=== PATIENT | female | born 1965 | race African-American/Black ===

== ENCOUNTER 2019-08-09 10:31 | Inpatient (IN) | payer OTHER, SELFPAY ==
[2019-08-05 14:58] LABS: BASOPHILS % 0.4 % (0.0-1.0); EOSINOPHILS # (AUTO) 0.3 (0.0-0.4); EOSINOPHILS % 3.1 % (0.0-6.0); HEMATOCRIT 39.7 % (34.2-44.1); HEMOGLOBIN 12.7 g/dL (12.0-16.0); LYMPHOCYTES # (AUTO) 3.7 (1.0-3.2); MEAN CORPUSCULAR HEMOGLOBIN 29.5 pg (28-32); MEAN CORPUSCULAR VOLUME 92.3 fL (81-99); MONOCYTES % 9.5 % (4.4-11.3); NEUTROPHILS # (AUTO) 5.2 (2.1-6.9); NEUTROPHILS % 50.4 % (38.7-80.0); PLATELET COUNT 206 x10e3/uL (140-360); RED CELL DISTRIBUTION WIDTH 14.9 % (11.7-14.4)
--- NOTE | 2019-08-05 15:15 | Diagnostic Imaging Report ---
EXAMINATION: CHEST 2 VIEWS INDICATION: Pre-operative COMPARISON: None FINDINGS: LINES/TUBES:None LUNGS:The lung volumes are low. There is perihilar fullness and indistinctness of the pulmonary vasculature. PLEURA:No pleural effusion or pneumothorax. MEDIASTINUM:The cardiomediastinal silhouette is mildly enlarged. BONES/SOFT TISSUES:No acute osseous injury. ABDOMEN:No free air under the diaphragm. IMPRESSION: Mild cardiomegaly and mild pulmonary edema. No focal pneumonia. Signed by: Jessica Cole MD on 08/05/2019 3:12 PM
[2019-08-05 15:18] LABS: ANION GAP 11.4 mmol/L (8-16); BLOOD UREA NITROGEN 13 mg/dL (7-26); BUN/CREATININE RATIO 13 (6-25); CARBON DIOXIDE 31 mmol/L (22-29); CHLORIDE 99 mmol/L (98-107); CREATININE, SERUM 1.01 mg/dL (0.57-1.11); EST GLOMERULAR FILTRATION RATE > 60 ML/MIN (60-); GLUCOSE 236 mg/dL (74-118); POTASSIUM 3.4 mmol/L (3.5-5.1); SODIUM 138 mmol/L (136-145)
[~2019-08-09] VITALS: Ht 165.1 cm; Wt 115.7 kg
[~2019-08-09 10:31] MED LIST: ACETAMINOPHEN 1000 MG/100 ML 100 ML IV ONE; ALBUTEROL0.63 MG/3 INH; BESIVANCE5 ML; CETIRIZINE HCL10 MG PO; DICLOFENAC PO; FLUTICASONE P15.8 ML; LIDOCAINE HCL (LTA) 4 ML SOLN ONE; METFORMIN HCL500 MG PO; MONTELUKAST SOD10 MG PO; PREDNISOLO15 MG/5 ML PO; PREDNISONE10 MG PO; SYMBICORT 80-10.2 GM INH; [UNRECOGNIZED DRUG - OTHER]
--- OUTSIDE RECORDS SUMMARY | 2019-08-09 10:34 | XMS REPORT ---
Author [facility] Address Unknown Phone Unavailable Care Team Providers Care Production Tech Name Role Phone Oleg ALAS Unavailable Unavailable Payers Payer Name Policy Type Policy Number Effective Date Expiration Date Problems This patient has no known problems. Allergies, Adverse Reactions, Alerts Allergy Name Allergy Type Status Severity Reaction(s) Onset Date Inactive Date Treating Clinician Comments SEAFOOD DA Active U 2019-05-08 00:00:00 mupirocin DA Active SV 2018-07-02 00:00:00 IODINE CONTRAST DA Active MO 2018-07-02 00:00:00 methylprednisolone DA Active U 2018-05-23 00:00:00 mupirocin DA Active U 2018-05-23 00:00:00 levofloxacin DA Active U 2018-05-23 00:00:00 IODINE CONTRAST DA Active U 2007-01-30 00:00:00 Medications This patient has no known medications. Results Test Description Test Time Test Comments Text Results Atomic Results Result Comments CHEST 2 VIEWS 2019-08-05 15:10:00 [place] [id number] Patient Name: ILEANA HAMILTON MR #: [id number] : 1965 Age/Sex: 54/F Req #: [id number] Adm Physician: Ordered by: SILVANA ALAS MD Report #: [id number] Location: OR Room/Bed: Procedure: [id number] DX/CHEST 2 VIEWS Exam Date: 08/05/19 Exam Time: 1450 REPORT STATUS: Signed EXAMINATION: CHEST 2 VIEWS INDICATION: Pre-operative COMPARISON: None FINDINGS: LINES/TUBES:None LUNGS:The lung volumes are low. There is perihilar fullness and indistinctness of the pulmonary vasculature. PLEURA:No pleural effusion or pneumothorax. MEDIASTINUM:The cardiomediastinal silhouette is mildly enlarged. BONES/SOFT TISSUES:No acute osseous injury. ABDOMEN:No free air under the diaphragm. IMPRESSION: Mild cardiomegaly and mild pulmonary edema. No focal pneumonia. Signed by: Bonifacio Mathews MD on 08/05/2019 3:12 PM Dictated By: BONIFACIO MATHEWS MD 11 Transcribed By: NIKA on 08/05/191511 COPY TO: SILVANA ALAS MD - XR CHEST 2 V 2019-07-24 21:11:00 Patient Name: ILEANA HAMILTON Unit No: [id number] EXAMS: CPT CODE: [id number] XR CHEST 2 V 19239 PROCEDURE: Chest radiograph, PA and lateral Location code:R16 INDICATION: Shortness of breath. COMPARISON: 05/08/2019 TECHNIQUE: PA and lateral views of the chest. FINDINGS: Low lung volumes with moderate bronchovascular crowding. There is mild bibasilar atelectasis. No focal consolidation. No pleural effusion or pneumothorax. The cardiac silhouette is within normal limits. Midline trachea. No acute osseous abnormalities. IMPRESSION: Mild left basilar atelectasis. Otherwise, no acute cardiopulmonary abnormality. at 2111 Reported and signed by: Jessica Casper MD CC: Raquel Cobos NP Technologist: Dylan Rosales (RT) (R) Transcrpt Date/Tm/Trnsp: 07/24/2019 (2110) [email or web address] Orig Print D/T: S: 07/24/2019 (2539) [facility] NAME: ILEANA HAMILTON [id number] PHYS: [place] [address] : 1965 AGE: 54 SEX: F LOC: JOSE PHONE #: [phone] EXAM DATE: 07/24/2019 STATUS: REG ER FAX #: [phone] RADIOLOGY NO: [id number] PAGE 1 Signed Report COMPREHENSIVE METABOLIC PANEL 2019-05-08 22:05:00 SODIUM (test code=NA) 141 MMOL/L 137-145 POTASSIUM (test code=K) 3.8 MMOL/L 3.5-5.1 CHLORIDE (test code=CL) 100 MMOL/L 98-107 CARBON DIOXIDE (test code=CO2) 32 MMOL/L 22-30 ANION GAP (test code=GAP) 13 MMOL/L 14-24 GLUCOSE (test code=GLU) 182 MG/DL 74-106 BLOOD UREA NITROGEN (test code=BUN) 13 MG/DL 7-17 GLOMERULAR FILTRATION RATE (test code=GFR) > 60 Reporting units: ml/min/1.73 m2 (Modified MDRD Formula)Reference Range: > or=60 ml/min/1.73 m2 CREATININE (test code=CREAT) 0.70 MG/DL 0.52-1.04 TOTAL PROTEIN (test code=PROT) 7.1 G/DL 6.3-8.2 ALBUMIN (test code=ALB) 3.9 G/DL 3.5-5.0 CALCIUM (test code=CA) 9.8 MG/DL 8.4-10.2 BILIRUBIN TOTAL (test code=BILT) 0.3 MG/DL 0.2-1.3 SGOT/AST (test code=AST) 36 UNITS/L 14-36 SGPT/ALT (test code=ALT) 46 UNITS/L 9-52 ALKALINE PHOSPHATASE (test code=ALKP) 78 UNITS/L 38-126 [id number] 22:05:00* Test Item Value Reference Range Comments TROPONIN-I (test code=TROPI) < 0.012 NG/ML 0.012-0.033 COMPREHENSIVE METABOLIC [id number] 22:04:00* Test Item Value Reference Range Comments SODIUM (test code=NA) 141 MMOL/L 137-145 POTASSIUM (test code=K) 3.8 MMOL/L 3.5-5.1 CHLORIDE (test code=CL) 100 MMOL/L 98-107 CARBON DIOXIDE (test code=CO2) 32 MMOL/L 22-30 ANION GAP (test code=GAP) 13 MMOL/L 14-24 GLUCOSE (test code=GLU) 182 MG/DL 74-106 BLOOD UREA NITROGEN (test code=BUN) 13 MG/DL 7-17 GLOMERULAR FILTRATION RATE (test code=GFR) > 60 Reporting units: ml/min/1.73 m2 (Modified MDRD Formula)Reference Range: > or=60 ml/min/1.73 m2 CREATININE (test code=CREAT) 0.70 MG/DL 0.52-1.04 TOTAL PROTEIN (test code=PROT) 7.1 G/DL 6.3-8.2 ALBUMIN (test code=ALB) 3.9 G/DL 3.5-5.0 CALCIUM (test code=CA) 9.8 MG/DL 8.4-10.2 BILIRUBIN TOTAL (test code=BILT) 0.3 MG/DL 0.2-1.3 SGOT/AST (test code=AST) 36 UNITS/L 14-36 SGPT/ALT (test code=ALT) 46 UNITS/L 9-52 ALKALINE PHOSPHATASE (test code=ALKP) 78 UNITS/L 38-126 [id number] 22:04:00* Test Item Value Reference Range Comments TROPONIN-I (test code=TROPI) NG/ML 0.0-0.045 PROTHROMBIN [id number] 21:54:00* Test Item Value Reference Range Comments PROTHROMBIN TIME PATIENT (test code=PTP) 10.2 SECONDS 9.6-11.6 INTERNATIONAL NORMAL RATIO (test code=INR) 1.0 0.8-1.1 The INR is to be used only for monitoring oral anticoagulanttherapy. INDICATION INR VALUE 1. Prophylaxis, deep venous thrombosis, including high risk surgery. 2.0 - 3.0 2. Prophylaxis, deep venous thrombosis, hip surgery, treatment for deep venous thrombosis or pulmonary prevention of systemic embolism in patients with valvular heart disease, atrial fibrillation, tissue heart valve, or acute myocardial infarction. 2.0 - 3.0 3. M echanical prosthesis heart valves, recurrent systemic embolism. 3.0 - 4.5 [id number] 21:54:00* Test Item Value Reference Range Comments D-DIMER (test code=DDIMER) 0.32 MG/L FEU 0-0.49 Negative Predictive Value cutoff for DVT & PE: <0.50 mg/L FEUInterpretation: A value of <0.50 mg/L FEU has a NegativePredictive Value in ruling out a DVT or PE diagnosis.A value of 0.50 mg/L or greater is considered Positive.Positive result cannot be used for the diagnosis of DVT andPE without using of standard radiological procedures. CBC W/AUTO [id number] 21:38:00* Test Item Value Reference Range Comments WHITE BLOOD CELL (test code=WBC) 6.8 K/MM3 3.8-9.8 RED BLOOD CELL (test code=RBC) 4.28 M/MM3 3.58-4.97 HEMOGLOBIN (test code=HGB) 12.5 G/DL 11.2-14.9 HEMATOCRIT (test code=HCT) 40.3 % 33.2-43.5 MEAN CELL VOLUME (test code=MCV) 94 fL 80.7-99.1 MEAN CELL HGB (test code=MCH) 29.2 pg 27.0-34.1 MEAN CELL HGB CONCETRATION (test code=MCHC) 31.0 % 32.2-35.7 RED CELL DISTRIBUTION WIDTH (test code=RDW) 14.6 % 12.1-15.2 PLATELET COUNT (test code=PLT) 180 K/MM3 129-368 MEAN PLATELET VOLUME (test code=MPV) 9.7 fl 7.4-10.4 NEUTROPHIL % (test code=NT%) 48.4 % 43-75 IMMATURE GRANULOCYTE % (test code=IG%) 0.3 % 0.0-2.0 LYMPHOCYTE % (test code=LY%) 36.3 % 14-44 MONOCYTE % (test code=MO%) 12.0 % 4-13 EOSINOPHIL % (test code=EO%) 2.6 % 0-6 BASOPHIL % (test code=BA%) 0.4 % 0-2 NUCLEATED RBC % (test code=NRBC%) 0.0 % 0-1.0 NEUTROPHIL # (test code=NT#) 3.31 K/mm3 2.0-7.6 IMMATURE GRANULOCYTE # (test code=IG#) 0.02 x10 3/uL 0-0.03 LYMPHOCYTE # (test code=LY#) 2.48 K/mm3 1.0-3.8 MONOCYTE # (test code=MO#) 0.82 K/mm3 0.1-0.8 EOSINOPHIL # (test code=EO#) 0.18 K/mm3 0.0-0.2 BASOPHIL # (test code=BA#) 0.03 K/mm3 0.0-0.2 NUCLEATED RBC # (test code=NRBC#) 0.00 K/mm3 0.0-0.1 - XR CHEST [id number] 21:19:00 Patient Name: ILEANA HAMILTON Unit No: [id number] EXAMS: CPT CODE: [id number] XR CHEST 1V 25845 AFTER HOURS SERVICE ON: 05/08/2019 9:18 PM AP Portable Chest Location Code M12 HISTORY: shoulder pain FINDINGS: Study is limited due to shallow inspiration. The Pedro lung bases. There is no pneumothorax. Cardiac silhouette and mediastinum appear within normal limits. IMPRESSION: No active pulmonary findings. at 2119 Reported and signed by: Kishan Stapleton M.D. CC: PANDA FR[place]; Devendra Hoff MD Technologist: Edgar Braswell, (RT) (R) Transcrpt Date/Tm/Trnsp: 05/08/2019 (2118) [email or web address] Orig Print D/T: S: 05/08/2019 (2121) [facility] NAME: ILEANA HAMILTON [id number] PHYS: PANDA [place] [address] : 1965 AGE: 54 SEX: F LOC: JOSE PHONE #: [phone] EXAM DATE: 05/08/2019 STATUS: REG ER FAX #: [phone] RADIOLOGY NO: [id number] PAGE 1 Signed Report
--- OUTSIDE RECORDS SUMMARY | 2019-08-09 10:34 | XMS REPORT ---
Author Author Justyna Elizalde Organization [employer] Address Unknown Phone Unavailable Care Team Providers Care Rn Documentation Specialist Name Role Phone Justyna Elizalde CP Unavailable Allergies, Adverse Reactions, Alerts Substance Reaction Event Type Mupirocin Info Not Available Drug Allergy MethylPREDNISolone rash Drug Allergy Levofloxacin Info Not Available Drug Allergy Problems Problem Type Condition Code Onset Dates Condition Status Assessment Persistent asthma without complication, unspecified asthma severity J45.909 Active Problem Persistent asthma without complication, unspecified asthma severity J45.909 Active Medications Medication Code System Code Instructions Start Date End Date Status Dosage Albuterol Sulfate [facility] 84855605024 (2.5 MG/3ML) 0.083% Inhalation Three times a day Active 3 ml as needed albuterol NDC 0 Active not defined Tramadol HCl NDC 0 Active not defined PrednisoLONE [facility] [address]-64 Active not defined Famotidine [facility] [address]-57 Active not defined Budesonide-Formoterol Fumarate [facility] [address]-18 Active not defined Oxybutynin Chloride [facility] [address]-68 10 MG Orally Active not defined Anoro Ellipta [facility] 25571608602 62.5-25 MCG/INH Inhalation Once a day Aug 18, 2018 Sep 17, 2018 Active 1 puff Prednisone NDC 0 Active not defined Acetaminophen [facility] [address]-64 650 MG Orally every 6 hrs Active 1 tablet as needed Montelukast Sodium [facility] [address]-97 Active not defined Results No Known Results Summary Purpose [employer] Submission
--- OUTSIDE RECORDS SUMMARY | 2019-08-09 10:34 | XMS REPORT ---
Author Author Dawn Martinez [facility] [employer] Address Unknown Phone Unavailable Care Team Providers Care Gas Furnace Installer Name Role Phone Dawn Martinez Unavailable Allergies No Known Allergies Problems Problem Type Condition Code Onset Dates Condition Status Problem Persistent asthma without complication, unspecified asthma severity J45.909 Active Medications No Known Medications Results No Known Results Summary Purpose [employer] Submission
--- OUTSIDE RECORDS SUMMARY | 2019-08-09 10:34 | XMS REPORT | Summary of Care ---
Author RAUL Desai M.D. Organization Unknown Address [facility] Phone Unavailable Care Team Providers Care Head Wrestling Coach Name Role Phone RAUL RUELAS M.D. Unavailable Unavailable OSMAN SCHMIDT M.D. Unavailable Unavailable Raul Ruelas MD Unavailable Unavailable WEI MOLINA DCKIMBERLY Unavailable Unavailable Unavailable Unavailable Functional Status Name Dates Details Functional status health issues are not documented Status: Name Dates Details Cognitive status health issues are not documented Status: Problems Name Dates Details Left leg swelling (729.81, M79.89) Status: Active Left knee pain (719.46, M25.562) Status: Active Primary localized osteoarthritis of knees, bilateral (715.16, M17.0) Status: Active Right knee pain (719.46, M25.561) Status: Active Arthralgia of both knees (719.46, M25.561) Status: Active History of total left knee replacement (V43.65, Z96.652) Status: Active Medications Name Dates Details COMPOUND MEDICATION COMPOUND: Flurbiprofen 10%-Amantadine 10%-Cyclobenzaprine 2%-Baclofen 2%- Gabapentin 6%-Lidocaine 2% Apply 1-2gm to affected area(s) 3-4x QD; Quantity: 240 OSMAN SCHMIDT M.D. * Start : 18-Sep-2016 Active COMPOUND MEDICATION [place]-3 1gm/D3 1,000 IU Kit Wellness Sig: Take 2 capsules of omega-3 by mouth tw ice a day. Take 2 capsules of vitamin D3 by mouth once a day * Quantity: 60 Refills: 5 OSMAN SCHMIDT M.D. * Start : 18-Sep-2016 Active Mefenamic Acid 250 MG Oral Capsule TAKE 2 CAPSULES NOW, THEN 1 CAPSULE EVERY 6 HOURS NEEDED. * Quantity: 30 Refills: 0 OSMAN SCHMIDT M.D. * Start : 18-Sep-2016 Active Omeprazole-Sodium Bicarbonate 40-1100 MG Oral Capsule Take 1 Capsule daily PRN as directed without food; Qty 30x Capsule * Quantity: 30 Refills: 0 OSMAN SCHMIDT M.D. * Start : 18-Sep-2016 Active Ibuprofen 200 MG Oral Tablet * Refills: 0 Active Cinnamon CAPS * Refills: 0 Active Fish Oil CAPS * Refills: 0 Active Glucosamine Chondroitin MSM TABS * Refills: 0 Active TraMADol HCl - 50 MG Oral Tablet TAKE 1 TABLET EVERY 4 TO 6 HOURS NEEDED FOR PAIN. * Quantity: 30 Refills: 0 OSMAN SCHMIDT M.D. * Start : 14-Apr-2017 Active TraMADol HCl - 50 MG Oral Tablet TAKE 1 TABLET EVERY 4 TO 6 HOURS NEEDED FOR PAIN. * Quantity: 60 Refills: 0 OSMAN SCHMIDT M.D. * Start : 04-Jun-2017 Active Ondansetron HCl - 4 MG Oral Tablet take 1 every 6 hrs/prn with pain medication * Quantity: 60 Refills: 0 RAUL RUELAS M.D. Start : 10-Oct-2017 Active Allergies and Adverse Reactions Name Dates Details iodine (Allergy) Status: Active Seafood (Allergy) Status: Active Past Medical History Name Dates Details History of asthma (V12.69, Z87.09) Status: Resolved Procedures Procedure Dates Details Procedures not documented Immunization Name Dates Details Immunizations not documented Family History Name Dates Details Family history of cerebrovascular accident (CVA) (V17.1, Z82.3) Status: Active Name Dates Details Family history of malignant neoplasm (V16.9, Z80.9) Status: Active Social History Name Dates Details Unknown if ever smoked Vital Signs Date Test Result Details No Known Vitals to report Results Date Description Value Details [id number] [U] XRAY KNEE 3 VWS LEFT 23837 XR KNEE 3 VWS LEFT Images acquired, not reported on this accession number. [id number] US Extremity lower venous Doppler Unilat 01822 Extremity lower venous Doppler Unilat US SEE NOTES Comments: Patient Name: ILEANA Benitez NNODIDOB: 1965; Age: 53 years y/o FemaleMR: [id number]: Ext Lower Venous Doppler Unilat US 05/14/2018 11:12 AM CDTOrdering Physician: Raul Ruelas, MDComparison: NoneClinical Indication: Pain in left lower leg - .; Color and Doppler venous flow, respiratory phasicity, compression andaugmentation is noted at the deep venous structures of the left lowerextremity.IMPRESSION: No deep venous thrombosis noted at the left lower extremitySL: [id number]--Bqux by: Jon Workmanictated Date/time: 05/14/18 11:37Electronically Signed by: Jon Workman MD 05/14/1811:37FINAL REPORT Plan of Care Name Dates Details Planned Observations Planned Goals not documented Planned Encounters Appointment; RAUL RUELAS M.D. On: 07-Aug-2018 13:15 Interventions Provided Medication Changes* Ondansetron HCl - 4 MG Oral Tablet - Start Labs/Procedures/Imaging* [U] XR KNEE 3 VWS BILATERAL; Done: 13 Aug 2017 * [U] XRAY KNEE 3 VWS LEFT 53375; Done: 21 Nov 2017 * [U] XRAY KNEE 3 VWS LEFT 89699; Done: 02 Jan 2018 * [U] XRAY KNEE 3 VWS LEFT 02633; Done: 07 Nov 2017 * [U] XRAY KNEE 3 VWS LEFT 58343; Done: 06 Feb 2018 * [U] XRAY KNEE 3 VWS LEFT 06930; Done: 13 May 2018 Instructions Name Dates Details Instructions not documented Encounters Appointment; OSMAN SCHMIDT M.D. Encounter Diagnosis: Problem not documented On: 18-Sep-2016 10:00 Appointment; OSMAN SCHMIDT M.D. Encounter Diagnosis: Problem not documented On: 30-Oct-2016 10:00 Appointment; OSMAN SCHMIDT M.D. Encounter Diagnosis: Problem not documented On: 10-Apr-2017 13:30 Appointment; OSMAN SCHMIDT M.D. Encounter Diagnosis: Problem not documented On: 14-Apr-2017 10:30 Appointment; OSMAN SCHMIDT M.D. Encounter Diagnosis: Problem not documented On: 14-May-2017 10:00 Appointment; OSMAN SCHMIDT M.D. Encounter Diagnosis: Problem not documented On: 25-Jun-2017 9:45 Appointment; LI-TERRELL PIERRE, OSMAN, M.D. Encounter Diagnosis: Problem not documented On: 02-Jul-2017 10:00 Appointment; OSMAN SCHMIDT M.D. Encounter Diagnosis: Problem not documented On: 09-Jul-2017 10:00 Appointment; KIMBERLY CARVAJAL P.A. Encounter Diagnosis: Problem not documented On: 24-Jul-2017 9:30 Appointment; RAUL RUELAS M.D. Encounter Diagnosis: Problem not documented On: 13-Aug-2017 16:00
[2019-08-09] MEDS ORDERED: SUGAMMADEX SODIUM 200 MG/2 ML VIAL IV ONE (11:22)
[2019-08-09] MEDS ORDERED: SCOPOLAMINE 1.5 MG PATCH ONE (11:22)
[2019-08-09] MEDS ORDERED: INSULIN REGULAR, HUMAN 100 UNIT/1 ML 3ML VIAL ONE ×2 (11:43→17:18)
[2019-08-09] MEDS ORDERED: CEFAZOLIN SOD 1 GM/NS 50ML 100 ML IV ONE (11:49)
[2019-08-09] MEDS: SODIUM CHLORIDE 0.9% 1000ML 1,000 ML IV SCH ×2 (11:55→22:58)
[2019-08-09] MEDS ORDERED: SCOPOLAMINE 1.5 MG PATCH TOP SCH (12:00)
[2019-08-09] MEDS ORDERED: MORPHINE SULFATE 2 MG/ML SYR 1ML IV PRN (12:00)
[2019-08-09] MEDS ORDERED: BUPIVACAINE 0.25% 30ML SDV INJ ONE (12:24)
[2019-08-09] MEDS ORDERED: HYDROMORPHONE 2MG/ML 2 MG/ML ML ONE (15:17)
[2019-08-09] MEDS ORDERED: HYDRALAZINE HCL 20 MG/ML VIAL ONE (15:20)
[2019-08-09] MEDS ORDERED: ROCURONIUM BROMIDE 10 MG/ML 5ML VIAL ONE (16:39)
[2019-08-09] MEDS ORDERED: GLYCOPYRROLATE INJ 1MG/ 5 ML SYR ONE (16:39)
[2019-08-09] MEDS ORDERED: LIDOCAINE HCL 2% LOCAL INJ 5 ML SDV VIAL INJ ONE (16:39)
[2019-08-09] MEDS ORDERED: NEOSTIGMINE 5 MG/5ML SYR ONE (16:39)
[2019-08-09] MEDS ORDERED: SEVOFLURANE INHAL SOLN 250 ML PEN BTL ONE (16:39)
[2019-08-09] MEDS ORDERED: ONDANSETRON HCL INJ 2MG/ML 2ML 2 MG/ML VIAL ONE (16:39)
[2019-08-09] MEDS ORDERED: EPHEDRINE SULFATE INJ 50 MG/10 ML SYR ONE (16:39)
[2019-08-09] MEDS ORDERED: PROPOFOL IV EMULSION 10 MG/ML 20 ML VIAL ONE (16:39)
[2019-08-09] MEDS ORDERED: DEXAMETHASONE SOD PHOS INJ 4 MG/ML VIAL ONE (16:39)
--- NOTE | 2019-08-09 16:54 | Operative Report ---
DATE OF PROCEDURE: 08/09/2019 SURGEON: Fernando Karimi MD PREOPERATIVE DIAGNOSIS: Morbid obesity, BMI 41. POSTOPERATIVE DIAGNOSIS: Morbid obesity, BMI 41. PREOPERATIVE INDICATION: Treat disease, prevent complications related to comorbid conditions of obesity. PROCEDURES: Laparoscopic vertical sleeve gastrectomy. ANESTHESIA: General. WIRE PHOTO OPERATOR NEWS: Christophe Barone, surgical nurse practitioner (needed due to complexity of case). FLUIDS: 700 mL of crystalloid. ESTIMATED BLOOD LOSS: 20 mL. DRAINS: None. COMPLICATIONS: None. SPECIMENS: Partial stomach. GRAFTS: None. FINDINGS: 1. Normal upper GI anatomy. 2. Negative intraoperative EGD leak test. PROCEDURE IN DETAIL: The patient was brought to the operating room, was intubated under general endotracheal anesthesia. She was positioned in supine with both arms abducted and all pressure points were appropriately padded. She was sterilely prepped and draped in the usual fashion. A preprocedure pause was performed identifying the patient, use of perioperative antibiotics, intended procedure, and staff surgeon. Access was gained via a 5 mm left subcostal incision using a Veress needle. Abdomen was insufflated. Four additional trocars were placed in standard position. Liver retractor was used to expose the stomach. The greater curvature of stomach was mobilized using the [place] LigaSure device from about 3 cm proximal to the pyloric valve to the left isai of the diaphragm. Once this was completed, an adult-sized endoscope was inserted through the oropharynx and guided to the lesser curvature of the stomach. The greater curvature of stomach was resected with multiple firings of an Endo-BOBBY 60 mm purple load with SeamGuard reinforced stapling device. Once this was complete, we submerged the sleeve under saline and conducted intraoperative EGD leak test, no leaks were identified. The specimen was removed through the right periumbilical port site. The port site was closed with 0 Vicryl suture using a Augustin Talavera technique in a kgjchn-df-pqupt fashion. We then verified hemostasis and removed the liver retractor and desufflated the abdomen. Trocars were removed. Incision sites were closed with 4-0 Monocryl suture in a subcuticular fashion. Dermabond dressings were applied. A 0.25% bupivacaine was used both at the preperitoneal incision sites. The patient tolerated the procedure well. Type of wound was type 2, clean, contaminated. All surgical sponge and instrument counts were correct. MD ASHLIE Rebolledo/JESSICA /[id number]
[2019-08-09] MEDS ORDERED: SODIUM CHLORIDE 0.9% 1000ML 1,000 ML ONE (16:56)
[2019-08-09] MEDS ORDERED: FENTANYL CITRATE/PF 100MCG/2 ML INJ ONE (18:02)
[2019-08-09] MEDS ORDERED: MIDAZOLAM HCL 2 MG/2 ML VIAL ONE (18:02)
[2019-08-09] MEDS ORDERED: KETAMINE HCL INJ 50 MG/ML 10 ML VIAL ONE (18:02)
--- NOTE | 2019-08-09 19:25 | History and Physical ---
CHIEF COMPLAINT: Underwent weight loss surgery today. HISTORY OF PRESENT ILLNESS: This is a 54-year-old Afghan woman, who was admitted to [facility] with a diagnosis of extreme obesity, BMI of 42, that was complicating her underlying hypertension and asthma. The patient underwent successful laparoscopic vertical sleeve gastrectomy today that was performed by Dr. Fernando Karimi. The patient tolerated the surgery quite well. The patient voices no complaints at this time. She is currently in the postanesthesia care unit. The patient had a chest x-ray performed on August 05, 2019 that revealed mild cardiomegaly with mild pulmonary edema. REVIEW OF SYSTEMS: GENERAL: Weight has been stable. No fever or chills. HEENT: No headaches. No visual changes. CARDIOVASCULAR/RESPIRATORY: She denies any chest pain, shortness of breath, or cough. GI: No nausea, vomiting, diarrhea, or constipation. The patient states she has not had any belching or flatus today since the surgery. : Dave catheter has been removed. NEUROMUSCULAR: No limb weakness or numbness. PAST MEDICAL HISTORY: 1. Extreme obesity, BMI of 42. 2. Asthma. 3. Allergic rhinitis. 4. Type 2 diabetes mellitus. 5. Arthritis. 6. Hypertension, likely. ALLERGIES: 1. IODINE. 2. LEVOFLOXACIN. 3. METHYLPREDNISONE. 4. SHELLFISH. MEDICATIONS: 1. Albuterol nebulized treatments 4 times a day as needed for severe shortness of breath and wheezing. 2. Besifloxacin one drop each eye as needed. 3. Symbicort inhaler 80/4.5, one puff daily. 4. Zyrtec 10 mg daily. 5. Flonase 1 spray each nostril daily. 6. Metformin 500 mg daily. 7. Montelukast 10 mg daily. 8. Prednisolone 15 mg 4 times a day as needed. 9. Prednisone 10 mg daily as needed. 10. Diclofenac 75 mg by mouth as needed for arthritic pain. FAMILY HISTORY: Father of a stroke. The patient does not know of any family members that have hypertension. PAST SURGICAL HISTORY: 1. Laparoscopic vertical sleeve gastrectomy today. 2. Left total knee replacement. 3. Abdominal hernia repair. 4. Right ear surgery. SOCIAL HISTORY: This woman is originally from the country of [place]. She is employed as a private duty nurse. She lives in her house with her sisters. No history of tobacco or alcohol use. PHYSICAL EXAMINATION: GENERAL: She is awake, alert, slightly somnolent, but arousable. She can answer questions appropriately though. VITAL SIGNS: Blood pressure 144/96, blood pressure earlier today after surgery was 170/106, pulse is 90, respiratory rate is 22, oxygen saturations 100% on 2 L of oxygen, temperature is 98.8. Height 5 feet 2 inches, weight is 255 pounds, BMI 42. INTEGUMENT: Skin is warm and dry. No pallor, jaundice, or diaphoresis. HEENT: Anicteric sclerae. Moist mucous membranes. NECK: Supple. No evidence of jugular venous distention. CARDIOVASCULAR: Distant heart sounds. Regular rate and rhythm. LUNGS: No rales, no rhonchi, no wheezes. ABDOMEN: Obese. No bowel sounds auscultated. The laparoscopic incision sites are clean, dry, and intact. EXTREMITIES: No edema or deformities. The patient is currently wearing sequential compression devices. NEUROLOGIC: Intact. DIAGNOSES: 1. Extreme obesity, BMI of 42, complicating underlying hypertension. 2. Hypertensive heart disease. 3. Asthma. 4. Diastolic heart failure, likely. PLAN: 1. We will decrease intravenous fluids from 125 to 75 mL an hour since the patient likely has diastolic heart failure. 2. Order a B-type natriuretic peptide level to assess for intravascular volume overload. 3. Continue supplemental oxygen. 4. Order nebulized bronchodilators. 5. Encourage incentive spirometer usage to prevent atelectasis. 6. Resume home medications, but we will hold the nonsteroidal anti-inflammatory drugs. 7. Mobilize the patient. 8. We will order enoxaparin to prevent deep venous thrombosis prophylaxis. I would like to thank Dr. Karimi for involving me in this case. I spent 45 minutes in the care of this patient. MD JOSE Hinojosa/JESSICA /[id number] MTDD
[2019-08-09] MEDS ORDERED: HYDROCODONE/APAP 7.5MG-325MG 1 EA TAB ONE (20:03)
[2019-08-09 21:00] VITALS: BP 136/76
[2019-08-09] MEDS ORDERED: BISACODYL 5 MG TAB EC PO PRN (22:45)
[2019-08-09] MEDS: AMLODIPINE BESYLATE 5 MG TAB PO SCH (22:58)
[2019-08-09] MEDS: ENOXAPARIN SOD INJ 40 MG/0.4 ML SYR SC SCH (22:58)
[2019-08-09] MEDS ORDERED: MAGNESIUM HYDROXIDE 30 ML UDC PO ONE (23:00)
[2019-08-10] VITALS (7 sets, daily range): BP systolic 122–175; BP diastolic 76–112
[2019-08-10] MEDS: ONDANSETRON HCL INJ 2MG/ML 2ML 2 MG/ML VIAL IV PRN ×2 (00:16→10:34)
[2019-08-10] MEDS: HYDROCODONE/APAP 7.5MG-325MG 1 EA TAB PO PRN ×3 (04:27→15:51)
[2019-08-10 05:57] LABS: BASOPHILS % 0.3 % (0.0-1.0); EOSINOPHILS % 0.3 % (0.0-6.0); HEMATOCRIT 39.1 % (34.2-44.1); HEMOGLOBIN 12.4 g/dL (12.0-16.0); LYMPHOCYTES # (AUTO) 2.1 (1.0-3.2); LYMPHOCYTES % 19.7 % (18.0-39.1); MEAN CORPUSCULAR HEMOGLOBIN 28.9 pg (28-32); MEAN CORPUSCULAR HGB CONC 31.7 g/dL (31-35); MEAN CORPUSCULAR VOLUME 91.1 fL (81-99); MONOCYTES # (AUTO) 0.9 (0.2-0.8); MONOCYTES % 7.8 % (4.4-11.3); NEUTROPHILS # (AUTO) 7.8 (2.1-6.9); NEUTROPHILS % 71.5 % (38.7-80.0); PLATELET COUNT 190 x10e3/uL (140-360); RED BLOOD COUNT 4.29 x10e6/uL (3.6-5.1); RED CELL DISTRIBUTION WIDTH 15.1 % (11.7-14.4)
[2019-08-10 06:10] LABS: ALANINE AMINOTRANSFERASE 210 IU/L (0-55); ALBUMIN 3.4 g/dL (3.5-5.0); ALKALINE PHOSPHATASE 68 IU/L (40-150); BLOOD UREA NITROGEN 8 mg/dL (7-26); BUN/CREATININE RATIO 9 (6-25); CALCIUM 9.5 mg/dL (8.4-10.2); CARBON DIOXIDE 28 mmol/L (22-29); CHLORIDE 100 mmol/L (98-107); EST GLOMERULAR FILTRATION RATE > 60 ML/MIN (60-); GLUCOSE 173 mg/dL (74-118); MAGNESIUM 2.2 MG/DL (1.3-2.1); PHOSPHORUS 3.8 MG/DL (2.3-4.7); SODIUM 139 mmol/L (136-145)
--- NOTE | 2019-08-10 07:29 | NUR ---
PROGRESS NOTE S: No complaints O: AF, VSS General- no distress Abdomen- soft, incisions healing well A/P: POD 1, s/p Lap sleeve gastrectomy -Clears, ambulate, IS, OOB to chair -Instructions for diet and follow up given to patient -OK to dc home today from surgery perspective
[2019-08-10] MEDS: AMLODIPINE BESYLATE 5 MG TAB PO SCH (10:24)
[2019-08-10] MEDS: ENOXAPARIN SOD INJ 40 MG/0.4 ML SYR SC SCH ×2 (10:28→17:00)
--- NOTE | 2019-08-10 11:19 | Discharge Summary ---
ADMIT DIAGNOSES: 1. Extreme obesity, BMI of 42, complicating underlying hypertension. 2. Hypertensive heart disease. 3. Asthma. 4. Diastolic heart failure, likely. DISCHARGE DIAGNOSES: 1. Status post laparoscopic vertical sleeve gastrectomy. 2. Extreme obesity, BMI of 42, complicating underlying hypertension. 3. Asthma. 4. Diastolic heart failure, likely. HOSPITAL COURSE: This is a 54-year-old English woman, who was initially admitted to [facility] with diagnosis of extreme obesity, BMI of 42 with complicating underlying hypertension. She also has a history of prediabetes, asthma. She was also diagnosed with likely diastolic heart failure during this hospital stay. The patient had a chest x-ray done here at [facility] on August 05, 2019, which revealed mild cardiomegaly with mild pulmonary edema. During this hospitalization, she was found to have elevated blood pressure readings, thus she was started on amlodipine 5 mg daily. The patient however stated that 1 week prior to the surgery, she was started on oral prednisone by [facility] because of asthma exacerbation. The patient states she was currently taking 10 mg of prednisone daily prior to the surgery. The patient's condition on discharge was stable. She was tolerating clear liquids on discharge. DISCHARGE MEDICATIONS: 1. Zofran 8 mg p.o. t.i.d. p.r.n. nausea and vomiting, 20 prescribed, 1 refill. 2. Tylenol No. 3 one p.o. t.i.d. p.r.n. pain, 20 prescribed, no refill on Tylenol No. 3. 3. Montelukast 10 mg daily. 4. Prednisolone eyedrops 4 times a day to her eyes. 5. Symbicort inhaler 80/4.5 two puffs b.i.d. 6. Besifloxacin one drop to each eye as needed. 7. Albuterol nebulized treatments up to 4 times a day as needed for shortness of breath and wheezing. 8. Flonase 1 spray to each nostril daily. 9. Zyrtec 10 mg daily. 10. Metformin 500 mg daily. The patient was instructed to stop the following medications: 1. Prednisone. 2. Diclofenac. FOLLOWUP INSTRUCTIONS: The patient was instructed to follow up with Dr. Rosas within 1 week. The patient was instructed to follow up with primary care physician in 2 weeks, so she can have her blood pressure checked and monitored. Once again, the patient was instructed to stop oral prednisone and diclofenac. MD JOSE Hinojosa/JESSICA /[id number] cc: Fernando Karimi MD MTDD
--- NOTE | 2019-08-10 11:40 | NUR ---
Nutrition Screen Note RD Recommendation for Physician: - ADAT to full liquid, NCS per MD Plan of Care: RD following, monitoring for tolerance and adequacy - Diet education completed 08/10 Nutrition reason for involvement: MD Consult- post operative diet education for gastric bypass Primary Diagnose(s): laparoscopic sleeve gastrectomy PMH: HTN,obesity, asthma Ht: 65 in Wt: 255 lb BMI: 42.4 kg/m2 IBW: [address] Assessment: (08/10) 54 YOF admitted for gastric bypass procedure, POD#1 for lap sleeve gastrectomy. Pt seen today per MD consult for post op diet education. Pt and pt's educated on bariatric progression of full liquid and pureed diets, discussed protein supplements, and reviewed handouts. All questions and concerns addressed at time of visit. Chart reviewed. Labs and meds reviewed, noted POC Gluc trend elevated- no hx of DM per chart. Will monitor and continue to follow. Current Diet: Bariatric Clear Liquid Malnutrition Evaluation (08/10/19) The patient does not meet criteria for a specified degree of malnutrition at this time. Will re-evaluate at follow-up as appropriate. Diet Education Needs Assessment: Diet education indicated, pt receptive. Learner(s): pt, pt's Barriers: none Cultural/Language Modifications: none Readiness: ready Method: handouts, discussion Topics: post-operative gastric bypass diet progression, full liquids, pureed diet, protein supplements, and MVI supplementation Understanding/Compliance: good Diet tolerance: tolerating CL diet Nutrition Care Level: Low Signed: Huma Burdick RD, LD, [facility]
[2019-08-10] MEDS ORDERED: CLONIDINE HCL 0.1 MG TAB PO STA (11:52)
[2019-08-10] MEDS ORDERED: FUROSEMIDE INJ 10 MG/ML 4 ML VIAL IV STA (11:52)
--- NOTE | 2019-08-10 14:15 | NUR ---
Visit made by the Spiritual Care Department Pastoral Visitor, Joana Hernandez. Pt sleeping soundly and no family present. Pastoral Visitor left a card describing availability of staple fiber washer and instructions on how to contact a staple fiber washer. GISELE ANDRE Spectrographer Spiritual Care Department O: [phone] Pager: [phone] ([phone] calling from)
[2019-08-10] MEDS ORDERED: ALBUTEROL SULF 0.083% NEB SOLN 3 ML NEB INH PRN (16:00)
[2019-08-10] MEDS ORDERED: TYLENOL WITH C1 EACH PO (16:44)
[2019-08-10] MEDS ORDERED: ZOFRAN4 MG PO (16:45)
== END 2019-08-10 19:07 | disposition home or self-care (01) | DRG 620 ==
LOC: OR 10:31 → PACU V 15:09 → IMCU 20:09 → OBSVTOIN 08-10 10:26
PROVIDERS: ADMIT Internal Medicine; ATTEND Internal Medicine
PROC: 0DB64Z3 Excision of Stomach, Percutaneous Endoscopic Approach, Vertical (ICD-10-PCS; principal; 2019-08-09 13:00)
DX: E66.01 Morbid (severe) obesity due to excess calories (principal); I50.32 Chronic diastolic (congestive) heart failure; Z68.41 Body mass index [BMI] 40.0-44.9, adult; I11.0 Hypertensive heart disease with heart failure; J45.909 Unspecified asthma, uncomplicated; E11.9 Type 2 diabetes mellitus without complications; G47.33 Obstructive sleep apnea (adult) (pediatric); M19.90 Unspecified osteoarthritis, unspecified site; Z96.652 Presence of left artificial knee joint; Z79.84 Long term (current) use of oral hypoglycemic drugs; Z88.8 Allergy status to other drugs, medicaments and biological substances; Z88.1 Allergy status to other antibiotic agents; Z91.041 Radiographic dye allergy status; Z91.013 Allergy to seafood
CPT/HCPCS: 36415; 71046; 80048; 80053; 82948; 83735; 83880; 84100; 85025; 94640; 94660; G0378; J0360; J0690; J1100; J1650; J1817; J1940; J2001; J2250; J2270; J2405; J3010; J7030